=== PATIENT | male | born 1980 | race Caucasian/White ===

== ENCOUNTER 2023-01-26 07:36 | Inpatient (IN) | payer BC ==
[2023-01-26] MEDS ORDERED: Nitroglycerin 2% Ointment 1 INCH/1 GM Packet ONE (08:01)
[2023-01-26] MEDS ORDERED: Aspirin Chewable 81 MG TAB ONE (08:01)
[2023-01-26 08:08] LABS: #Eosinphils 0.2 thou/uL (0.0-0.7); #Lymphocytes 1.4 thou/uL (1.20-3.40); #Monocytes 0.5 thou/uL (0.11-0.59); #Neutrophils 4.1 thou/uL (1.40-6.50); %Basophils 0.4 % (0.0-1.0); %Eosinophils 2.5 % (0.0-10.0); %Lymphocytes 23.2 % (21.0-51.0); %Monocytes 7.5 % (0.0-10.0); %Neutrophils 66.4 % (42.0-75.0); Hemoglobin 14.3 g/dL (14.0-18.0); Mean Corpuscular HGB CONC 33.2 g/dL (32.0-36.0); Mean Corpuscular Volume 96.3 fl (78.0-98.0); Mean Platelet Volume 7.5 fL (7.4-10.4); Platelet Count 228 10x3/uL (130-400); RBC Distribution Width 13.3 % (11.5-14.5); Red Blood Cell (RBC) Count 4.46 mill/uL (4.70-6.10); White Blood Cell (WBC) Count 6.2 10x3/uL (4.8-10.8)
[2023-01-26 08:32] LABS: ALT (SGPT) 36 U/L (8-55); AST (SGOT) 22 U/L (5-34); Albumin 3.9 g/dL (3.5-5.0); Alkaline Phosphatase 61 U/L (40-110); Anion Gap 15 mmol/L (10-20); BUN (Urea Nitrogen) 16 mg/dL (8.9-20.6); Bilirubin, Total 0.5 mg/dL (0.2-1.2); Calc. Creatinine Clearance 0 mL/min (70-130); Calcium 9.2 mg/dL (7.8-10.44); Carbon Dioxide 24 mmol/L (22-29); Chloride 103 mmol/L (98-107); Estimated GFR 80; Globulin 3.1 g/dL (2.4-3.5); Glucose 270 mg/dL (70-105); Potassium 3.8 mmol/L (3.5-5.1); Sodium 138 mmol/L (136-145)
[2023-01-26 08:54] LABS: CKMB 1.5 ng/mL (0-6.6)
[2023-01-26] MEDS ORDERED: Furosemide 40 MG/4 ML VIAL ONE (10:19)
[2023-01-26] MEDS ORDERED: Iopamidol 370 76% 100 ML VIAL ONE (10:22)
[2023-01-26] MEDS ORDERED: Lorazepam 1 MG TAB PO PRN (10:44)
[2023-01-26] MEDS ORDERED: Dextrose 50% Abboject 50 ML SYRINGE SLOW IVP PRN (10:44)
[2023-01-26] MEDS ORDERED: Dextrose 5% in Water 1,000 ML IV PRN (10:44)
[2023-01-26] MEDS ORDERED: Ondansetron ODT 4 MG TAB PO PRN (10:44)
[2023-01-26] MEDS ORDERED: Lorazepam 2 MG/ML VIAL IM PRN (10:44)
[2023-01-26] MEDS ORDERED: Electrolyte Replacement Protocol FS SCH (10:45)
[2023-01-26] MEDS ORDERED: HumaLOG 300 UNITS/3 ML VIAL SC PRN (10:47)
[2023-01-26 11:21] LABS: Cardiac Risk 3.3 (Less than 4.5); Cholesterol 151 mg/dl (< 200 Desired); HDL Cholesterol 46 mg/dL (>60 Neg Risk); LDL Cholesterol, Calculated 85 mg/dL; Phosphorus 3.7 mg/dL (2.3-4.7); Triglycerides 100 mg/dL (Less than 150)
[2023-01-26 11:29] LABS: Hemoglobin A1c 6.9 % (4.0-6.0)
[2023-01-26] MEDS ORDERED: Nicotine 14 MG PATCH ONE (12:29)
[2023-01-26] MEDS ORDERED: Magnesium 2 GM/50 ML BAG (IN WATER) ONE (12:29)
[2023-01-26] MEDS: Nicotine 14 MG PATCH TD SCH (12:36)
[2023-01-26] MEDS ORDERED: Magnesium 2 GM/50 ML(in water) 2 GM in Premix Bag 1 BAG IVPB SCH (13:00)
[2023-01-26 14:23] LABS: Troponin I 0.105 ng/mL (< 0.028)
[2023-01-26 17:35] LABS: Troponin I 0.104 ng/mL (< 0.028)
[2023-01-26] MEDS ORDERED: Acetaminophen 500 MG TAB PO PRN (18:20)
[2023-01-26] MEDS ORDERED: Ibuprofen 200 MG TAB PO PRN (18:20)
[2023-01-26] MEDS: HumaLOG 300 UNITS/3 ML VIAL SC PRN (18:27)
[2023-01-26] MEDS ORDERED: hydrALAZINE 20 MG/ML VIAL SLOW IVP PRN (19:28)
[2023-01-26] MEDS ORDERED: Lisinopril 20 MG TAB PO SCH (21:00)
[2023-01-26] MEDS: Sacubitril 24MG/Valsartan 26 MG TAB PO SCH (21:30)
[2023-01-27 04:58] LABS: #Basophils 0.1 thou/uL (0.0-0.2); #Eosinphils 0.1 thou/uL (0.0-0.7); #Lymphocytes 1.7 thou/uL (1.20-3.40); #Monocytes 0.5 thou/uL (0.11-0.59); #Neutrophils 3.9 thou/uL (1.40-6.50); %Basophils 0.9 % (0.0-1.0); %Eosinophils 1.7 % (0.0-10.0); %Lymphocytes 26.6 % (21.0-51.0); %Monocytes 8.3 % (0.0-10.0); %Neutrophils 62.5 % (42.0-75.0); Mean Corpuscular HGB CONC 30.8 g/dL (32.0-36.0); Mean Corpuscular Volume 97.4 fl (78.0-98.0); Mean Platelet Volume 7.4 fL (7.4-10.4); Platelet Count 217 10x3/uL (130-400); RBC Distribution Width 13.5 % (11.5-14.5); Red Blood Cell (RBC) Count 4.32 mill/uL (4.70-6.10); White Blood Cell (WBC) Count 6.2 10x3/uL (4.8-10.8)
[2023-01-27 05:18] LABS: ALT (SGPT) 34 U/L (8-55); AST (SGOT) 19 U/L (5-34); Albumin 3.6 g/dL (3.5-5.0); Alkaline Phosphatase 48 U/L (40-110); Anion Gap 13 mmol/L (10-20); BUN (Urea Nitrogen) 12 mg/dL (8.9-20.6); Bilirubin, Total 0.6 mg/dL (0.2-1.2); Calc. Creatinine Clearance 214 mL/min (70-130); Calcium 8.4 mg/dL (7.8-10.44); Carbon Dioxide 29 mmol/L (22-29); Chloride 104 mmol/L (98-107); Estimated GFR 98; Globulin 2.7 g/dL (2.4-3.5); Glucose 147 mg/dL (70-105); Potassium 3.7 mmol/L (3.5-5.1); Protein, Total 6.3 g/dL (6.0-8.3); Sodium 142 mmol/L (136-145)
[2023-01-27] MEDS: HumaLOG 300 UNITS/3 ML VIAL SC PRN (06:07)
[2023-01-27] MEDS ORDERED: Potassium Chloride 20 MEQ TAB PO SCH ×2 (08:00→13:00)
[2023-01-27] MEDS: Empagliflozin 10 MG TAB PO SCH (08:45)
[2023-01-27] MEDS: Sacubitril 24MG/Valsartan 26 MG TAB PO SCH ×2 (08:45→20:42)
[2023-01-27] MEDS: Folic Acid 1 MG TAB PO SCH (08:45)
[2023-01-27] MEDS: Furosemide 40 MG TAB PO SCH (08:45)
[2023-01-27] MEDS: Multivit, Therapeutic 1 TAB PO SCH (08:45)
[2023-01-27] MEDS: metFORMIN 500 MG TAB PO SCH (08:46)
[2023-01-27] MEDS ORDERED: Lorazepam 1 MG TAB PO PRN (10:45)
[2023-01-27] MEDS: Nicotine 14 MG PATCH TD SCH (13:57)
[2023-01-28 01:46] LABS: Amphetamine Not Detected (NotDetected); Barbiturates Screen Not Detected (NotDetected); Benzodiazepine Screen Not Detected (NotDetected); Cocaine Metabolite Screen Not Detected (NotDetected); Methadone Not Detected (NotDetected); Methamphetamine Not Detected (NotDetected); Opiate Screen Not Detected (NotDetected); Oxycodone Screen Not Detected (NotDetected); Phencyclidine (PCP) Not Detected (NotDetected); THC/Cannabinoid Screen Not Detected (NotDetected); Tricyclic Screen Not Detected (NotDetected)
[2023-01-28 04:40] LABS: #Basophils 0.1 thou/uL (0.0-0.2); #Eosinphils 0.2 thou/uL (0.0-0.7); #Lymphocytes 1.9 thou/uL (1.20-3.40); #Monocytes 0.7 thou/uL (0.11-0.59); #Neutrophils 3.8 thou/uL (1.40-6.50); %Eosinophils 2.5 % (0.0-10.0); %Monocytes 9.9 % (0.0-10.0); %Neutrophils 57.6 % (42.0-75.0); Hemoglobin 14.6 g/dL (14.0-18.0); Mean Corpuscular HGB CONC 33.6 g/dL (32.0-36.0); Mean Corpuscular Hemoglobin 32.9 pg (27.0-31.0); Mean Platelet Volume 7.3 fL (7.4-10.4); Platelet Count 216 10x3/uL (130-400); RBC Distribution Width 13.5 % (11.5-14.5); Red Blood Cell (RBC) Count 4.45 mill/uL (4.70-6.10); White Blood Cell (WBC) Count 6.5 10x3/uL (4.8-10.8)
[2023-01-28 05:05] LABS: ALT (SGPT) 28 U/L (8-55); AST (SGOT) 20 U/L (5-34); Albumin 3.6 g/dL (3.5-5.0); Alkaline Phosphatase 52 U/L (40-110); Anion Gap 15 mmol/L (10-20); BUN (Urea Nitrogen) 12 mg/dL (8.9-20.6); Bilirubin, Total 0.6 mg/dL (0.2-1.2); Calc. Creatinine Clearance 208 mL/min (70-130); Calcium 8.7 mg/dL (7.8-10.44); Carbon Dioxide 23 mmol/L (22-29); Chloride 107 mmol/L (98-107); Estimated GFR 98; Glucose 117 mg/dL (70-105); Potassium 3.8 mmol/L (3.5-5.1); Protein, Total 6.6 g/dL (6.0-8.3); Sodium 141 mmol/L (136-145)
[2023-01-28] MEDS ORDERED: Potassium Chloride 20 MEQ TAB PO SCH (08:00)
[2023-01-28] MEDS: Empagliflozin 10 MG TAB PO SCH (08:40)
[2023-01-28] MEDS: Furosemide 40 MG TAB PO SCH (08:40)
[2023-01-28] MEDS: Sacubitril 24MG/Valsartan 26 MG TAB PO SCH (08:40)
[2023-01-28] MEDS: metFORMIN 500 MG TAB PO SCH (08:40)
[2023-01-28] MEDS: Folic Acid 1 MG TAB PO SCH (08:40)
[2023-01-28] MEDS: Multivit, Therapeutic 1 TAB PO SCH (08:40)
[2023-01-28] MEDS ORDERED: Lorazepam 1 MG TAB PO PRN (10:45)
[2023-01-28 11:38] VITALS: BMI 52.0
[2023-01-28] MEDS: Nicotine 14 MG PATCH TD SCH (12:19)
[2023-01-28] MEDS ORDERED: Carvedilol 3.125 MG TAB PO SCH ×2 (12:45→17:00)
[2023-01-28] MEDS ORDERED: Melatonin 3 MG TAB PO SCH (20:30)
[2023-01-28] MEDS ORDERED: Nystatin Powder 15 GM BOT TOP PRN (20:37)
[2023-01-28] MEDS: Sacubitril 49 MG/Valsartan 51 MG TABLET PO SCH (20:47)
[2023-01-29 04:51] LABS: #Eosinphils 0.2 thou/uL (0.0-0.7); #Lymphocytes 2.2 thou/uL (1.20-3.40); #Monocytes 0.7 thou/uL (0.11-0.59); #Neutrophils 4.3 thou/uL (1.40-6.50); %Basophils 0.4 % (0.0-1.0); %Eosinophils 3.1 % (0.0-10.0); %Lymphocytes 29.5 % (21.0-51.0); %Monocytes 9.2 % (0.0-10.0); %Neutrophils 57.9 % (42.0-75.0); Hemoglobin 14.8 g/dL (14.0-18.0); Mean Corpuscular HGB CONC 31.6 g/dL (32.0-36.0); Mean Corpuscular Hemoglobin 30.9 pg (27.0-31.0); Mean Corpuscular Volume 97.8 fl (78.0-98.0); Mean Platelet Volume 7.2 fL (7.4-10.4); Platelet Count 246 10x3/uL (130-400); RBC Distribution Width 13.3 % (11.5-14.5); Red Blood Cell (RBC) Count 4.78 mill/uL (4.70-6.10); White Blood Cell (WBC) Count 7.3 10x3/uL (4.8-10.8)
[2023-01-29 05:01] LABS: ALT (SGPT) 27 U/L (8-55); AST (SGOT) 19 U/L (5-34); Albumin 3.7 g/dL (3.5-5.0); Alkaline Phosphatase 49 U/L (40-110); Anion Gap 13 mmol/L (10-20); BUN (Urea Nitrogen) 14 mg/dL (8.9-20.6); Bilirubin, Total 0.6 mg/dL (0.2-1.2); Calc. Creatinine Clearance 194 mL/min (70-130); Calcium 8.9 mg/dL (7.8-10.44); Carbon Dioxide 28 mmol/L (22-29); Chloride 104 mmol/L (98-107); Estimated GFR 95; Globulin 3.1 g/dL (2.4-3.5); Glucose 139 mg/dL (70-105); Potassium 4.4 mmol/L (3.5-5.1); Protein, Total 6.8 g/dL (6.0-8.3); Sodium 141 mmol/L (136-145)
[2023-01-29] MEDS ORDERED: Carvedilol 6.25 MG TAB PO SCH (08:00)
[2023-01-29] MEDS ORDERED: Spironolactone 25 MG TAB PO SCH (08:00)
[2023-01-29] MEDS: Empagliflozin 10 MG TAB PO SCH (09:04)
[2023-01-29] MEDS: Multivit, Therapeutic 1 TAB PO SCH (09:04)
[2023-01-29] MEDS: Furosemide 40 MG TAB PO SCH (09:04)
[2023-01-29] MEDS: Sacubitril 49 MG/Valsartan 51 MG TABLET PO SCH ×2 (09:04→20:50)
[2023-01-29] MEDS: Folic Acid 1 MG TAB PO SCH (09:04)
[2023-01-29] MEDS ORDERED: Lorazepam 0.5 MG TAB PO PRN ×2 (10:45→11:29)
[2023-01-29] MEDS ORDERED: Dextrose 50% Abboject 50 ML SYRINGE SLOW IVP PRN (11:24)
[2023-01-29] MEDS ORDERED: Ondansetron ODT 4 MG TAB PO PRN (11:25)
[2023-01-29] MEDS ORDERED: Dextrose 5% in Water 1,000 ML IV PRN (11:25)
[2023-01-29] MEDS ORDERED: HumaLOG 300 UNITS/3 ML VIAL SC PRN ×2 (11:26)
[2023-01-29] MEDS ORDERED: hydrALAZINE 20 MG/ML VIAL SLOW IVP PRN (11:27)
[2023-01-29] MEDS ORDERED: Ibuprofen 200 MG TAB PO PRN (11:27)
[2023-01-29] MEDS ORDERED: Acetaminophen 500 MG TAB PO PRN (11:27)
[2023-01-29] MEDS ORDERED: Electrolyte Replacement Protocol FS PRN (11:30)
[2023-01-29] MEDS: Nicotine 14 MG PATCH TD SCH (11:39)
[2023-01-29] MEDS ORDERED: Thiamine 100 MG TAB PO SCH ×2 (12:00)
[2023-01-29] MEDS: Carvedilol 6.25 MG TAB PO SCH (17:22)
[2023-01-29] MEDS: Melatonin 3 MG TAB PO PRN (21:16)
[2023-01-30 04:33] LABS: #Eosinphils 0.2 thou/uL (0.0-0.7); #Lymphocytes 1.8 thou/uL (1.20-3.40); #Monocytes 0.7 thou/uL (0.11-0.59); #Neutrophils 3.9 thou/uL (1.40-6.50); %Basophils 0.7 % (0.0-1.0); %Eosinophils 3.5 % (0.0-10.0); %Lymphocytes 26.8 % (21.0-51.0); %Monocytes 10.8 % (0.0-10.0); %Neutrophils 58.1 % (42.0-75.0); Hemoglobin 15.1 g/dL (14.0-18.0); Mean Corpuscular HGB CONC 32.8 g/dL (32.0-36.0); Mean Corpuscular Hemoglobin 32.3 pg (27.0-31.0); Mean Corpuscular Volume 98.3 fl (78.0-98.0); Platelet Count 230 10x3/uL (130-400); RBC Distribution Width 13.2 % (11.5-14.5); Red Blood Cell (RBC) Count 4.69 mill/uL (4.70-6.10); White Blood Cell (WBC) Count 6.6 10x3/uL (4.8-10.8)
[2023-01-30 04:54] LABS: ALT (SGPT) 30 U/L (8-55); AST (SGOT) 22 U/L (5-34); Albumin 3.7 g/dL (3.5-5.0); Alkaline Phosphatase 45 U/L (40-110); Anion Gap 14 mmol/L (10-20); BUN (Urea Nitrogen) 16 mg/dL (8.9-20.6); Bilirubin, Total 0.5 mg/dL (0.2-1.2); Calc. Creatinine Clearance 187 mL/min (70-130); Calcium 8.8 mg/dL (7.8-10.44); Carbon Dioxide 26 mmol/L (22-29); Chloride 106 mmol/L (98-107); Estimated GFR 90; Glucose 116 mg/dL (70-105); Potassium 4.5 mmol/L (3.5-5.1); Protein, Total 6.7 g/dL (6.0-8.3); Sodium 141 mmol/L (136-145)
[2023-01-30] MEDS: Sacubitril 49 MG/Valsartan 51 MG TABLET PO SCH ×2 (08:25→21:44)
[2023-01-30] MEDS: Thiamine 100 MG TAB PO SCH (08:25)
[2023-01-30] MEDS: Furosemide 40 MG TAB PO SCH (08:25)
[2023-01-30] MEDS: Spironolactone 25 MG TAB PO SCH (08:25)
[2023-01-30] MEDS: Folic Acid 1 MG TAB PO SCH (08:26)
[2023-01-30] MEDS: Carvedilol 6.25 MG TAB PO SCH ×2 (08:26→16:36)
[2023-01-30] MEDS: Multivit, Therapeutic 1 TAB PO SCH (08:26)
[2023-01-30] MEDS: Empagliflozin 10 MG TAB PO SCH (08:26)
[2023-01-30] MEDS: Nicotine 14 MG PATCH TD SCH (12:37)
[2023-01-30] MEDS: Melatonin 3 MG TAB PO PRN (21:44)
[2023-01-31] MEDS: Sacubitril 49 MG/Valsartan 51 MG TABLET PO SCH ×2 (08:30→20:39)
[2023-01-31] MEDS: Thiamine 100 MG TAB PO SCH (08:30)
[2023-01-31] MEDS: Spironolactone 25 MG TAB PO SCH (08:30)
[2023-01-31] MEDS: Empagliflozin 10 MG TAB PO SCH (08:31)
[2023-01-31] MEDS: Furosemide 40 MG TAB PO SCH (08:31)
[2023-01-31] MEDS: Carvedilol 6.25 MG TAB PO SCH ×2 (08:31→17:02)
[2023-01-31] MEDS: Folic Acid 1 MG TAB PO SCH (08:31)
[2023-01-31] MEDS: Multivit, Therapeutic 1 TAB PO SCH (08:31)
[2023-01-31] MEDS: Nicotine 14 MG PATCH TD SCH (11:33)
[2023-01-31] MEDS: Melatonin 3 MG TAB PO PRN (20:39)
[2023-02-01] MEDS: Spironolactone 25 MG TAB PO SCH (08:23)
[2023-02-01] MEDS: Carvedilol 6.25 MG TAB PO SCH (08:23)
[2023-02-01] MEDS: Furosemide 40 MG TAB PO SCH (08:24)
[2023-02-01] MEDS: Thiamine 100 MG TAB PO SCH (08:24)
[2023-02-01] MEDS: Multivit, Therapeutic 1 TAB PO SCH (08:24)
[2023-02-01] MEDS: Sacubitril 49 MG/Valsartan 51 MG TABLET PO SCH (08:24)
[2023-02-01] MEDS: Folic Acid 1 MG TAB PO SCH (08:24)
[2023-02-01] MEDS: Empagliflozin 10 MG TAB PO SCH (08:24)
[2023-02-01] MEDS: Nicotine 14 MG PATCH TD SCH (12:24)
[2023-02-01 12:28] VITALS: BP 126/74; TEMP 97.6
== END 2023-02-01 12:37 | disposition home or self-care (01) | DRG 291 ==
LOC: ERS 07:36 → ERHOLD 10:32 → 2NO 14:54 → UNDODISIN 01-29 10:47
PROVIDERS: ADMIT Emergency Medicine; ATTEND Family Medicine
DX: I11.0 Hypertensive heart disease with heart failure (principal); I50.43 Acute on chronic combined systolic (congestive) and diastolic (congestive) heart failure; Z68.43 Body mass index [BMI] 50.0-59.9, adult; I42.0 Dilated cardiomyopathy; F10.10 Alcohol abuse, uncomplicated; E11.9 Type 2 diabetes mellitus without complications; F17.290 Nicotine dependence, other tobacco product, uncomplicated; E66.01 Morbid (severe) obesity due to excess calories; F41.9 Anxiety disorder, unspecified; R77.8 Other specified abnormalities of plasma proteins; I08.1 Rheumatic disorders of both mitral and tricuspid valves; Z86.16 Personal history of COVID-19; Z82.49 Family history of ischemic heart disease and other diseases of the circulatory system; Z82.5 Family history of asthma and other chronic lower respiratory diseases; Z83.6 Family history of other diseases of the respiratory system; Z83.3 Family history of diabetes mellitus; Z79.899 Other long term (current) drug therapy; Z79.84 Long term (current) use of oral hypoglycemic drugs
CPT/HCPCS: 36415; 36416; 71045; 71275; 80053; 80061; 80306; 82553; 83036; 83735; 83880; 84100; 84443; 84484; 85025; 93005; 93306; 93798; 94760; 96374; J1650; J1815; J1940; J3475; Q9967

== ENCOUNTER 2023-07-16 17:00 | Outpatient (CLI) | payer BC | END 2023-07-16 17:01 | disposition home or self-care (01) | LOC: SLEEPLAB 17:00 | PROVIDERS: ATTEND Internal Medicine Critical Care Medicine | DX: G47.33 Obstructive sleep apnea (adult) (pediatric) (principal); I50.22 Chronic systolic (congestive) heart failure; R53.83 Other fatigue; R09.89 Other specified symptoms and signs involving the circulatory and respiratory systems | CPT/HCPCS: 95810 ==

== ENCOUNTER 2023-11-15 16:00 | Outpatient (CLI) | payer BC | END 2023-11-15 16:01 | disposition home or self-care (01) | LOC: SLEEPLAB 16:00 | PROVIDERS: ATTEND Internal Medicine Critical Care Medicine | DX: G47.33 Obstructive sleep apnea (adult) (pediatric) (principal); R53.83 Other fatigue; I50.9 Heart failure, unspecified; R06.83 Snoring; G47.10 Hypersomnia, unspecified; E66.9 Obesity, unspecified; Z68.41 Body mass index [BMI] 40.0-44.9, adult | CPT/HCPCS: 95811 ==